=== PATIENT | male | born 1980 ===

== ENCOUNTER 2022-04-23 10:12 | Emergency (ER) | payer MEDICAID ==
[2022-04-23] MEDS ORDERED: traMADol 50 MG Tab PO ONE (10:58)
[2022-04-23] MEDS ORDERED: Ibuprofen 600 MG Tab PO ONE (10:58)
== END 2022-04-23 12:45 | disposition home or self-care (01) ==
LOC: MW.ED 10:12
DX: S82.832A Other fracture of upper and lower end of left fibula, initial encounter for closed fracture (principal); S93.402A Sprain of unspecified ligament of left ankle, initial encounter; R03.0 Elevated blood-pressure reading, without diagnosis of hypertension; Z72.0 Tobacco use; Z88.8 Allergy status to other drugs, medicaments and biological substances; Z79.01 Long term (current) use of anticoagulants; W00.0XXA Fall on same level due to ice and snow, initial encounter
CPT/HCPCS: 73590; 73610; 99283; A9270